=== PATIENT | male | born 1965 | race Caucasian/White ===

== ENCOUNTER 2019-06-28 00:19 | Inpatient (IN) | payer BC ==
[2019-06-28] MEDS ORDERED: Morphine 4 MG/ML VIAL (1 ml) 4 MG/ML VIAL IV ONE ×2 (00:47→03:50)
[2019-06-28] MEDS ORDERED: Metoclopramide IV* 5 MG/ML 2 ML VIAL IV SLOW PU ONE (00:47)
[2019-06-28] MEDS ORDERED: NS 0.9% 1000 ML** 1,000 ML IV ONE (00:47)
--- NOTE | 2019-06-28 01:02 | ED ---
Abdominal Pain/Male - HPI Summary HPI Summary: Patient is a 54 y/o M presenting to [facility] with complaints of intermittent abdominal pain that onset the morning of 06/27/2019. Pain has progressively worsened since onset. He states that he has been diaphoretic and nauseous as well. Last bowel movement was 2100 06/27. He notes Hx of umbilical hernia repair in December of 2009. He additionally notes that he has been hospitalized previously for twisted intestines around 3-4 years ago. On triage, pain is rated 7/10, nothing is noted to aggravate/alleviate Sx. Home medications and allergies are reviewed. - History of Current Complaint Chief Complaint: EDAbdPain Stated Complaint: ABD PAIN PER EMS Time Seen by Provider: 06/28/19 00:40 Hx Obtained From: Patient Onset/Duration: Lasting Hours, Still Present Timing: Intermittent, Lasting Hours Severity Initially: Mild Severity Currently: Severe Pain Intensity: 7 Pain Scale Used: 0-10 Numeric Aggravating Factor(s): Nothing Alleviating Factor(s): Nothing Associated Signs And Symptoms: Positive: Diaphoresis, Nausea. Negative: Constipation - Allergies/Home Medications Allergies/Adverse Reactions: Allergies Allergy/AdvReac Type Severity Reaction Status Date / Time codeine Allergy Unknown Verified 06/28/19 00:26 Reaction Details PMH/Surg Hx/FS Hx/Imm Hx Cardiovascular History: Denies: Hx Congestive Heart Failure, Hx Hypertension History: Reports: Hx Kidney Stones Sensory History: Reports: Hx Contacts or Glasses Opthamlomology History: Reports: Hx Contacts or Glasses Neurological History: Reports: Hx Headaches - Surgical History Surgery Procedure, Year, and Place: Umbillical hernia repair Infectious Disease History: No Infectious Disease History: Denies: History Other Infectious Disease, Traveled Outside the [place] in Last 30 Days - Family History Known Family History: Positive: Other - stroke - Social History Alcohol Use: Occasionally Substance Use Type: Reports: None Smoking Status (MU): Former Smoker Review of Systems Positive: Skin Diaphoresis Gastrointestinal: Other - negative - constipation Positive: Abdominal Pain, Nausea All Other Systems Reviewed And Are Negative: Yes Physical Exam - Summary Physical Exam Summary: VITAL SIGNS: Reviewed. GENERAL: Patient is a well-developed and nourished male who is lying comfortable in the stretcher. Patient is not in any acute respiratory distress. HEAD AND FACE: No signs of trauma. No ecchymosis, hematomas or skull depressions. No sinus tenderness. EYES: PERRLA, EOMI x 2, No injected conjunctiva, no nystagmus. EARS: Hearing grossly intact. Ear canals and tympanic membranes are within normal limits. MOUTH: Oropharynx within normal limits. NECK: Supple, trachea is midline, no adenopathy, no JVD, no carotid bruit, no c- spine tenderness, neck with full ROM CHEST: Symmetric, no tenderness at palpation LUNGS: Clear to auscultation bilaterally. No wheezing or crackles. CVS: Regular rate and rhythm, S1 and S2 present, no murmurs or gallops appreciated. ABDOMEN: Soft. Abdomen is distended and diffusely tender. No rebound no guarding , and no masses palpated. Bowel sounds are normal. EXTREMITIES: FROM in all major joints, no edema, no cyanosis or clubbing. NEURO: Alert and oriented x 3. No acute neurological deficits. Speech is normal and follows commands. SKIN: Dry and warm Triage Information Reviewed: Yes Vital Signs On Initial Exam: Initial Vitals Temp Pulse Resp BP Pulse Ox 98 F 73 16 145/99 98 06/28/19 00:20 06/28/19 00:20 06/28/19 00:20 06/28/19 00:20 06/28/19 00:20 Vital Signs Reviewed: Yes Diagnostics - Vital Signs Vital Signs Temp Pulse Resp BP Pulse Ox 06/28/19 00:20 98 F 73 16 145/99 98 - Laboratory Result Diagrams: 06/28/19 00:59 06/28/19 00:59 Lab Statement: Any lab studies that have been ordered have been reviewed, and results considered in the medical decision making process. - CT CT ABD/PEL CT Interpretation Completed By: Radiologist Summary of CT Findings: CT ABD/PEL IMPRESSION: 1. Partial small bowel obstruction. Dilated loops of small bowel in the left. flank area. No bowel wall thickening or pneumatosis. Short zone of transition. No abnormal study abdominal mass. 2. Nephrolithiasis. At this point in time no hydronephrosis. THIS REPORT WAS REVIEWED BY DR. ANNE. Abdominal Pain Male Course/Dx - Course Course Of Treatment: Patient is a 54 y/o M presenting to [facility] with complaints of intermittent abdominal pain that onset the morning of 06/27/2019. Pain has progressively worsened since onset. He states that he has been diaphoretic and nauseous as well. Last bowel movement was 2100 06/27. He notes Hx of umbilical hernia repair in December of 2009. He additionally notes that he has been hospitalized previously for twisted intestines around 3-4 years ago. On physical exam, patient is noted to have diffuse abdominal tenderness and abdominal distention. Labs showed WBC 15.2, MCH 32, absolute neuts 13.4, absolute lymphs 0.8, potassium 3.4, glucose 127, lipase 10. UA showed trace ketones and ascorbic acid present. During ED course, patient received fluids, morphine 4 mg IV x 2, and reglan [address] ABD/PEL IMPRESSION: 1. Partial small bowel obstruction. Dilated loops of small bowel in the left. flank area. No bowel wall thickening or pneumatosis. Short zone of transition. No abnormal study abdominal mass. 2. Nephrolithiasis. At this point in time no hydronephrosis. 0400 - Patient's case was discussed with Dr. Martinez, Dr. Martinez accepts for admission. - Diagnoses Provider Diagnoses: SBO (small bowel obstruction) - Provider Notifications Discussed Care Of Patient With: Marie Martinez Time Discussed With Above Provider: 04:00 Instructed by Provider To: Other - 0400 - Patient's case was discussed with Dr. Martinez, Dr. Martinez accepts for admission. Discharge ED - Sign-Out/Discharge Documenting (check all that apply): Patient Departure - admit All imaging exams completed and their final reports reviewed: Yes Patient Received Moderate/Deep Sedation with Procedure: No - Discharge Plan Condition: Stable Disposition: ADMITTED TO [facility] - Attestation Statements Document Initiated by Scribe: Yes Documenting Scribe: YOANNA TOLENTINO Provider For Whom Giovani is Documenting (Include Credential): BETHEL ANNE MD Scribe Attestation: YOANNA Napoles, scribed for BETHEL ANNE MD on 06/28/19 at 0541. Status of Scribe Document: Ready
[2019-06-28 01:05] LABS: ABS Lymphocytes 0.8 10^3/ul (1.0-4.8); ABS Monocytes 0.8 10^3/ul (0-0.8); ABS Neutrophils 13.4 10^3/ul (1.5-7.7); Eosinophil % 0.2 %; Hematocrit 47 % (42-52); Hemoglobin 16.2 g/dL (14.0-18.0); Lymphocyte % 5.6 %; Mean Corpuscular HGB Conc 34 g/dL (31-36); Mean Corpuscular Hemoglobin 32 pg (27-31); Mean Corpuscular Volume 92 fL (80-94); Mean Platelet Volume 7.6 fL (7.4-10.4); Platelet Count 209 10^3/uL (150-450); Red Blood Count 5.13 10^6 /uL (4.18-5.48); Red Cell Distribution Width 14 % (10-15); White Blood Count 15.2 10^3/uL (3.5-10.8)
[2019-06-28 01:14] LABS: Activated Partial Thrombo Time 33.7 seconds (26.0-38.0); INR 1.03 (0.82-1.09)
[2019-06-28 01:23] LABS: Albumin 4.7 g/dL (3.2-5.2); Albumin/Globulin Ratio 1.4 (1-3); BUN/Creatinine Ratio 16.5 (8-20); C Reactive Protein 3.55 mg/L (<8.01); Calcium 10.1 mg/dL (8.6-10.3); EGFR African American 104.7 (>60); EGFR Non-African American 86.5 (>60); Globulin 3.3 g/dL (2-4); Magnesium 1.9 mg/dL (1.9-2.7); Potassium 3.4 mmol/L (3.5-5.0); Total Bilirubin 0.6 mg/dL (0.2-1.0)
[2019-06-28] MEDS ORDERED: Iohexol 300* (CONTRAST) 10 ML SDV IV ONE (02:09)
[2019-06-28 03:14] LABS: Urine Appearance Turbid; Urine Bilirubin Negative (Negative); Urine Blood Negative (Negative); Urine Color Yellow; Urine Glucose Negative (Negative); Urine Ketones Trace (Negative); Urine Nitrite Negative (Negative); Urine Protein Negative (Negative); Urine Specific Gravity 1.033 (1.010-1.030); Urine Urobilinogen Negative (Negative)
[2019-06-28] MEDS ORDERED: Acetaminophen TAB* 325 MG PO PRN (04:09)
[2019-06-28] MEDS ORDERED: Ondansetron INJ* 2 MG/ML VIAL IV PRN (04:10)
[2019-06-28] MEDS ORDERED: NS 0.9% 1000 ML** 1,000 ML IV SCH (04:15)
[2019-06-28] MEDS: Heparin VIAL(*) 5000 UNITS/ML VIAL (FIVE THOUSAND) SUBCUT SCH ×3 (06:24→21:23)
--- NOTE | 2019-06-28 07:16 | HP ---
HISTORY AND PHYSICAL: DATE OF ADMISSION: 06/28/19 PRIMARY CARE PROVIDER: Christ Ibarra. RELEASE AND TECHNICAL RECORDS CLERK: Shahrzad Chin, patient's . CODE STATUS: Full. CHIEF COMPLAINT: Abdominal pain. REASON FOR ADMISSION: Partial small bowel obstruction. SOURCE OF INFORMATION: HPI is obtained from the patient who is an excellent historian. HISTORY OF PRESENT ILLNESS: This is a 54-year-old male with past medical history of GERD, hyperlipid emia, but otherwise healthy, who presented with one day of acute onset of left lower quadrant pain. The patient was in his usual state of health until he said he woke up with mild crampy abdominal pain . Over the course of the day, it got worse and he started noticing abdominal distention. It was acco mpanied with nausea and vomiting and he decided to present to the emergency room as he has a history of a small bowel obstruction in 2014 and the symptoms felt very similar. He denies bloody diarrhea, c onstipation. Otherwise, review of systems is negative. EMERGENCY ROOM COURSE: Blood pressure is 145/99, oxygen saturation 98% on room air, respiratory rate 16, pulse 73, temperature 98 degrees. Labs were drawn which show leukocytosis of 15. BMP unremarka ble. UA unremarkable. Lipase 10. LFTs normal. A CAT scan of abdomen showed partial small bowel ob struction with dilated loops of small bowel in the left flank area. No bowel wall thickening. No pn eumatosis. A short zone of transition. Nephrolithiasis was seen with no hydronephrosis. An NG tube was placed in the emergency room with immediate 700 cc of green gastric contents was emptied with im mediate symptom relief. Hospitalist team was asked to evaluate the patient for further diagnostics a nd treatment. PAST MEDICAL HISTORY: Hyperlipidemia, GERD. PAST SURGICAL HISTORY: Umbilical hernia repair. MEDICATIONS: 1. Simvastatin 20 mg p.o. daily 2. Omeprazole 20 mg p.o. daily. 3. Aspirin 81 mg p.o. daily. ALLERGIES: CODEINE. FAMILY HISTORY: The patient reports both parents are living and healthy with no chronic diseases. SOCIAL HISTORY: The patient lives with his . 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 Tobacco, lifetime nonuser. Alcohol, scant, social drinker with 1 to 2 dri nks per week. Illicits none. REVIEW OF SYSTEMS: Constitutional: Negative for fevers, chills, malaise. HEENT: Negative for visio n changes, sore throat. Cardiovascular: Negative for chest pain, palpitations, orthopnea. Respirat ory: Negative for shortness of breath, cough, pleuritic chest pain. GI: Positive for nausea, vomit ing, and abdominal pain. Negative for diarrhea, constipation. : Negative for dysuria, hematuria. Musculoskeletal: Negative for myalgias, arthralgias, or weakness. Skin: Negative for rashes or le sions. Neurologic: Negative for focal weakness or numbness. Psychiatric: Negative for depression a nd anxiety. Endocrine: Negative for polyuria, polydipsia. Heme: Negative for easy bruising, bleed ing, or lymphadenopathy. Allergies: Negative for frequent infections. PHYSICAL EXAMINATION GENERAL APPEARANCE: A very pleasant man in no acute distress with NG tube in place. VITAL SIGNS: At the time of physical exam, 139/88 blood pressure, oxygen 95% on room air, pulse 74 s inus, afebrile. HEENT: Pupils are equal and reactive. Extraocular muscles are intact. Sclerae anicteric. NG tube is placed in naris, to low intermittent wall suction. Oropharynx is with moist mucous membranes. NECK: Supple with no supraclavicular or cervical lymphadenopathy. RESPIRATORY: Lungs are clear to auscultation bilaterally. CARDIAC: Regular rate and rhythm with no murmurs, rubs, or gallops. ABDOMEN: Belly is distended but soft, mildly tender to palpation in the left lower quadrant. No kim ound or guarding. No organomegaly. Hyperactive bowel sounds heard in all 4 quadrants. EXTREMITIES: Well perfused and warm. 2+ pulses without edema. NEUROLOGIC: Cranial nerves II through XII are intact. No focal neurologic deficits. A and O x3. P leasant and cooperative with exam. SKIN: Without rashes are lesions. DIAGNOSTIC STUDIES/LAB DATA: CBC: White blood cell count of 15.2, hemoglobin 16, hematocrit 47, pl atelets 209, INR 1.03. Chemistry: Sodium of 136, potassium 3.4, carbon dioxide 26, BUN 1.5, creatin ine 0.91, glucose 127. UA with trace ketones. Otherwise, unremarkable. Imaging: Abdomen and pelvis CT shows dilated small bowel loops in the left flank area with short tra nsition point with no associated bowel wall edema or pneumatosis consistent with partial small bowel obstruction. Imaging and labs reviewed by myself. ASSESSMENT AND PLAN: This is a 54-year-old man with a past medical history of gastroesophageal reflu x disease and hyperlipidemia who presents with one day of abdominal pain and found to have left lower quadrant partial small bowel obstruction and is status post NG tube placement. 1. Partial small obstruction. The patient will continue on low intermittent wall suction with NG tu be. He is at risk for small bowel obstruction secondary to his prior umbilical hernia and prior smal l bowel obstruction in 2014. Surgery was consulted in the morning. Pain control with morphine, comp lete bowel rest and IV fluids at 125 mL per hour will be continued. Symptomatic treatment of nausea with Zofran. We will continue home PPI. 2. Hyperlipidemia. We will continue home statin. 3. Gastroesophageal reflux disease. Home proton pump inhibitor will be continued. 4. DVT prophylaxis: Subcu heparin. 5. Disposition: Stable for admission to [address] [place] [address] under medical service with Surgery consulting. 6. Code status is full. 7. FEN. N.p.o. except for ice chips. Advance diet as tolerated. TIME SPENT: Forty minutes was spe nt in the planning of this admission with over half of that spent directly at the bedside with the samra lewis providing direct patient care. Plan of care was discussed with the patient's who had no f urther questions. [id number]/[facility] #: [id number]
[2019-06-28] MEDS: Morphine 10 MG/ML VIAL (1 ml) IV PRN ×3 (08:08→20:18)
[2019-06-28] MEDS: Pantoprazole IV* 40 MG IV SCH (08:43)
[2019-06-28] MEDS ORDERED: Atorvastatin* 10 MG TAB PO SCH (09:00)
[2019-06-28] MEDS ORDERED: Pantoprazole TAB * 40 MG TAB PO SCH (09:00)
[2019-06-28] MEDS ORDERED: Aspirin EC TAB* 81 MG TAB.EC PO SCH (09:00)
--- NOTE | 2019-06-28 10:50 | PN ---
Subjective Date of Service: 06/28/19 Interval History: Mr. Chin is feeling better this morning. His pain has improved from a 10 to 3/10. Describes the pain as band-like around his mid abdomen. Denies N/V. No CP or SOB. Nursing requesting chloraseptic throat spray. Family History: Unchanged from Admission Social History: Unchanged from Admission Past Medical History: Unchanged from Admission Objective Active Medications: Acetaminophen (Tylenol Tab*) 650 mg PO Q6H PRN MILD PAIN or TEMP > 100.4 Aspirin (Aspirin Ec Tab*) 81 mg PO DAILY [facility] Atorvastatin Calcium (Lipitor*) 10 mg PO DAILY [facility] Heparin Sodium (Porcine) (Heparin Vial(*)) 5,000 units SUBCUT Q8HR [facility] Sodium Chloride (Ns 0.9% 1000 Ml) 1,000 mls @ 125 mls/hr IV Q8H [facility] Morphine Sulfate (Morphine 10 Mg/Ml Vial (1 Ml)) 5 mg IV Q6H PRN PAIN - SEVERE Ondansetron HCl (Zofran Inj*) 4 mg IV Q6H PRN NAUSEA Pantoprazole Sodium (Protonix Iv*) 40 mg IV DAILY [facility] Phenol/Menthol (Chloroseptic Throat [place]*) 1 spray MT TID PRN SORE THROAT Vital Signs - 8 hr 06/28/19 06/28/19 06/28/19 02:52 03:00 03:22 Temperature Pulse Rate 94 83 84 Respiratory Rate Blood Pressure 124/75 118/72 (mmHg) O2 Sat by Pulse 92 91 92 Oximetry 06/28/19 06/28/19 06/28/19 03:52 04:00 04:03 Temperature Pulse Rate 82 104 Respiratory 16 Rate Blood Pressure 124/72 (mmHg) O2 Sat by Pulse 94 96 Oximetry 06/28/19 06/28/19 06/28/19 04:22 04:48 04:52 Temperature Pulse Rate 83 80 82 Respiratory Rate Blood Pressure 123/74 128/77 129/80 (mmHg) O2 Sat by Pulse 93 93 93 Oximetry 06/28/19 06/28/19 06/28/19 05:00 05:22 05:52 Temperature Pulse Rate 75 77 70 Respiratory Rate Blood Pressure 131/79 133/83 (mmHg) O2 Sat by Pulse 93 93 94 Oximetry 08/27/19 08/27/19 08/27/19 06:06 06:16 08:08 Temperature 98 F 97.8 F Pulse Rate 71 84 Respiratory 16 18 18 Rate Blood Pressure 129/80 117/76 (mmHg) O2 Sat by Pulse 94 97 Oximetry Oxygen Devices in Use Now: None Appearance: Middle-aged male sitting in bed in NAD Eyes: No Scleral Icterus Ears/Nose/Mouth/Throat: Mucous Membranes Moist Neck: NL Appearance and Movements; NL JVP, Trachea Midline Respiratory: Symmetrical Chest Expansion and Respiratory Effort, Clear to Auscultation Cardiovascular: NL Sounds; No Murmurs; No JVD, RRR Abdominal: - - Soft, tender throughout, worst in LUQ and LLQ Extremities: No Edema Neurological: Alert and Oriented x 3 Lines/Tubes/Other Access: Clean, Dry and Intact Other Access - NG tube Result Diagrams: 06/28/19 00:59 06/28/19 00:59 Assess/Plan/Problems-Billing Assessment: Mr. Chin is a 54 yo M with PMH of HLD, GERD, and SBO in 2014; who presented to the ED with abdominal pain and N/V and was found to have a partial SBO. - Patient Problems (1) SBO (small bowel obstruction) Code(s): K56.69 - OTHER INTESTINAL OBSTRUCTION * DO NOT USE * Comment: - One day od abdominal pain and N/V prior to admission - CT showing partial SBO - Appreciate Surgery consult; plan for repeat xray in the AM - NPO - NG to suction (2) Hyperlipidemia Code(s): E78.5 - HYPERLIPIDEMIA, UNSPECIFIED Comment: - Hold statin while NPO (3) GERD (gastroesophageal reflux disease) Code(s): K21.9 - GASTRO-ESOPHAGEAL REFLUX DISEASE WITHOUT ESOPHAGITIS Comment : - Continue pantoprazole (4) DVT prophylaxis Code(s): Z29.9 - ENCOUNTER FOR PROPHYLACTIC MEASURES, UNSPECIFIED Comment: - Heparin SQ (5) Full code status Code(s): Z78.9 - OTHER SPECIFIED HEALTH STATUS Comment: Status and Disposition: Inpatient. Anticipate d/c home when medically stable. Attending: Estiven Chávez
--- NOTE | 2019-06-28 12:54 | CONS ---
CC: Dr. Noel; Dr. Baptiste * SURGICAL CONSULTATION NOTE: DATE OF CONSULT: 06/28/19 LOCATION: This patient was seen on 06/28/19 in room 420 at [facility]. ATTENDING PHYSICIAN: Dr. Maldonado Noel. CHIEF COMPLAINT: Worsening abdominal pain. REASON FOR ADMISSION: Partial small bowel obstruction. HISTORY OF PRESENT ILLNESS: The patient is a 54-year-old male with a past medical history of GERD, hyperlipidemia, and partial small bowel obstruction in 2014. He presented to the emergency department on 06/27/19 with 1 day of acute onset of left lower quadrant pain. He was in his usual state of health until he woke up with mild crampy abdominal pain; over the course of the day, it got worse and he started noticing abdominal distention accompanied with nausea and vomiting. He decided to present to the emergency room because of his history of small bowel obstruction in 2014 and the symptoms were very similar. He denies any constipation, bloody stools, or dysuria. In the emergency room, his white blood count was elevated at 15.2, LFTs and basic metabolic profile were within normal limits. A CAT scan of the abdomen showed partial small bowel obstruction with dilated loops of small bowel in the left flank area, no bowel wall thickening or pneumatosis. There was a short zone of transition. A nasogastric tube was placed in the emergency room with immediate 700 mL of green gastric contents with immediate symptom relief. This morning, he reports that his pain has decreased from 9 down to 3; he is not passing any flatus or stools, and overnight, he had an additional 600 mL of nasogastric drainage. PAST MEDICAL HISTORY: Hyperlipidemia, GERD, and partial small bowel obstruction. He is followed for primary care by Dr. Baptiste at [place]. PAST SURGICAL HISTORY: Umbilical hernia repair at [place] in 2009 and he is not sure if they used mesh. MEDICATIONS AT HOME: 1. Simvastatin 20 mg p.o. daily. 2. Omeprazole 20 mg p.o. daily. 3. Aspirin 81 mg p.o. daily. ALLERGIES: CODEINE caused unspecified reaction. FAMILY HISTORY: The patient reports that both parents are alive and well. 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 He denies the use of tobacco. He rarely drinks alcohol and denies the use of other substances. REVIEW OF SYSTEMS: Constitutional: No fevers, chills, or excessive fatigue. Cardiovascular: No chest pain or palpitations. Respiratory: No shortness of breath or chronic cough. Gastrointestinal: As described in history of present illness. Negative for diarrhea or constipation. Genitourinary: No dysuria or hematuria. Musculoskeletal: No myalgias or arthralgias or weakness. Neurologic: No focal weakness or numbness. Endocrine: No diabetes or thyroid disease. Hematologic: No easy bruising or bleeding. General: No previous anesthesia complications. No history of deep vein thrombosis or pulmonary embolism. PHYSICAL EXAM: General Survey: The patient is a 54-year-old male, well developed, well nourished, in no acute distress. Blood pressure 117/76, pulse 84 and regular, respiratory rate 18, temperature 97.8 tympanic, O2 saturation on room air 97%. Height 5 feet 5 inches, weight 193 pounds, body max index 32. Skin: Warm, dry, intact. HEENT: Benign. Neck: Supple. No cervical lymphadenopathy. Lungs: Breath sounds bilaterally clear and equal. Heart: Regular rate and rhythm. No murmurs or rubs. Abdomen: Hypoactive bowel sounds ; soft and distended; tender to palpation in the lower quadrants, left greater than right. No guarding or rebound tenderness. Well-healed umbilical surgical scar. No obvious organomegaly or ventral hernia, but exam is limited by the patient's discomfort. Genitalia and rectal exams deferred. Extremities are warm without edema or skin ulceration. Neurologic: Alert and oriented x3, pleasant and conversant. Skin without rashes or lesions. ASSESSMENT AND PLAN: The patient is a 54-year-old man with recurrent partial small bowel obstruction with medical history of gastroesophageal reflux disease and hyperlipidemia who presents with 1 day of abdominal pain and was found to have a left lower quadrant partial small bowel obstruction. The patient will continue on low intermittent wall suction with nasogastric tube; he will be n.p.o. except for a few ice chips; he will receive IV fluids, pain management. We will continue to follow the patient and I have ordered abdominal x-ray and labs for tomorrow morning. The plan of care was discussed with the patient and his and they had no further questions. Dr. Noel will be updated. TIME SPENT: Sixty minutes with greater than 50% in history taking and physical examination and coordination of care. CARLOS MANUEL OMER NP [id number]/[facility] #: [id number] ROSANA
[2019-06-28] MEDS: Phenol 1.4% Spray* 177 ML BTL MT PRN (20:18)
[2019-06-29] MEDS: Morphine 10 MG/ML VIAL (1 ml) IV PRN ×2 (02:10→09:14)
[2019-06-29] MEDS: Phenol 1.4% Spray* 177 ML BTL MT PRN (02:10)
[2019-06-29] MEDS: Heparin VIAL(*) 5000 UNITS/ML VIAL (FIVE THOUSAND) SUBCUT SCH ×3 (05:29→22:04)
[2019-06-29 05:52] LABS: ABS Lymphocytes 1.3 10^3/ul (1.0-4.8); ABS Monocytes 0.8 10^3/ul (0-0.8); ABS Neutrophils 8.8 10^3/ul (1.5-7.7); Eosinophil % 0.3 %; Hematocrit 44 % (42-52); Hemoglobin 14.7 g/dL (14.0-18.0); Lymphocyte % 11.9 %; Mean Corpuscular HGB Conc 34 g/dL (31-36); Mean Corpuscular Hemoglobin 32 pg (27-31); Mean Corpuscular Volume 94 fL (80-94); Mean Platelet Volume 8.1 fL (7.4-10.4); Platelet Count 195 10^3/uL (150-450); Red Blood Count 4.64 10^6 /uL (4.18-5.48); Red Cell Distribution Width 14 % (10-15)
[2019-06-29 06:12] LABS: BUN/Creatinine Ratio 15.8 (8-20); Calcium 8.4 mg/dL (8.6-10.3); EGFR African American 92.8 (>60); EGFR Non-African American 76.7 (>60); Potassium 3.6 mmol/L (3.5-5.0)
[2019-06-29] MEDS: Pantoprazole IV* 40 MG IV SCH (08:32)
[2019-06-29] MEDS ORDERED: Lactated Ringers 1000 ML Bag* 1,000 ML IV SCH (11:00)
--- NOTE | 2019-06-29 11:16 | PN ---
Subjective Date of Service: 06/29/19 Interval History: Mr. Chin is feeling better today. No further abdominal pain. Denies nausea. Has passed gas this morning and feels as though he needs to have a BM. Would like to have the NG tube removed. Denies CP, SOB. No concerns from nursing. Family History: Unchanged from Admission Social History: Unchanged from Admission Past Medical History: Unchanged from Admission Objective Active Medications: Acetaminophen (Tylenol Tab*) 650 mg PO Q6H PRN MILD PAIN or TEMP > 100.4 Heparin Sodium (Porcine) (Heparin Vial(*)) 5,000 units SUBCUT Q8HR [facility] Lactated Ringer's (Lactated Ringers 1000 Ml Bag*) 1,000 mls @ 100 mls/hr IV PER RATE [facility] Morphine Sulfate (Morphine 10 Mg/Ml Vial (1 Ml)) 5 mg IV Q6H PRN PAIN - SEVERE Ondansetron HCl (Zofran Inj*) 4 mg IV Q6H PRN NAUSEA Pantoprazole Sodium (Protonix Iv*) 40 mg IV DAILY [facility] Phenol/Menthol (Chloroseptic Throat [place]*) 1 spray MT TID PRN SORE THROAT Vital Signs - 8 hr 06/29/19 06/29/19 06/29/19 07:15 08:00 09:14 Temperature 97.4 F Pulse Rate 77 Respiratory 16 18 18 Rate Blood Pressure 122/69 (mmHg) O2 Sat by Pulse 94 Oximetry Oxygen Devices in Use Now: None Appearance: Middle-aged male sitting in bed in NAD Eyes: No Scleral Icterus Ears/Nose/Mouth/Throat: Mucous Membranes Moist Neck: NL Appearance and Movements; NL JVP, Trachea Midline Respiratory: Symmetrical Chest Expansion and Respiratory Effort, Clear to Auscultation Cardiovascular: NL Sounds; No Murmurs; No JVD, RRR Abdominal: - - SNT, hypoactive BS Neurological: Alert and Oriented x 3 Lines/Tubes/Other Access: Clean, Dry and Intact Peripheral IV Nutrition: Taking PO's Result Diagrams: 06/29/19 05:18 06/29/19 05:18 Assess/Plan/Problems-Billing Assessment: Mr. Chin is a 54 yo M with PMH of HLD, GERD, and SBO in 2014; who presented to the ED with abdominal pain and N/V and was found to have a partial SBO. - Patient Problems (1) SBO (small bowel obstruction) Code(s): K56.69 - OTHER INTESTINAL OBSTRUCTION * DO NOT USE * Comment: - One day od abdominal pain and N/V prior to admission - CT showing partial SBO - Repeat abdomen xray this morning, report pending - Appreciate Surgery consult - NPO and NG to suction; can likely remove NG and advance to clears if xray shows improvement (2) Hyperlipidemia Code(s): E78.5 - HYPERLIPIDEMIA, UNSPECIFIED Comment: - Hold statin while NPO (3) GERD (gastroesophageal reflux disease) Code(s): K21.9 - GASTRO-ESOPHAGEAL REFLUX DISEASE WITHOUT ESOPHAGITIS Comment : - Continue pantoprazole (4) DVT prophylaxis Code(s): Z29.9 - ENCOUNTER FOR PROPHYLACTIC MEASURES, UNSPECIFIED Comment: - Heparin SQ (5) Full code status Code(s): Z78.9 - OTHER SPECIFIED HEALTH STATUS Comment: Status and Disposition: Inpatient. Anticipate d/c home when medically stable. Attending: Estiven Chávez
--- NOTE | 2019-06-29 13:36 | PN ---
Progress Note - Progress Note Date of Service: 06/29/19 SOAP: Subjective:passing flatus,no abdominal pain,hungry [] Objective: Vital Signs Temp 97.6 F 06/29/19 11:15 Pulse 72 06/29/19 11:15 Resp 18 06/29/19 11:27 BP 126/70 06/29/19 11:15 Pulse Ox 96 06/29/19 11:15 Intake & Output 06/28/19 06/29/19 06/29/19 18:59 06:59 18:59 Intake Total 1000 0 0 Output Total 400 Balance 600 0 0 Intake: IV Fluids 1000 NS (0.9%) 1000 Oral 0 0 Output: NG Tube Drainage Amount 400 Other: Estimated Void Medium # Bowel Movements 0 # Voids 1 0 abd:+bs,softer,nontender throughout,no masses,no ventral hernia AXR today:no dilated loops of small bowel,stool in colon [] Assessment:SBO resolved;he stated today that he has hx of diverticulosis [] Plan:remove NG tube start clear liquids and advance diet as tolerated no surgery indicated at this time discussed importance of dietary fiber followup with PCP as needed return to ED with recurrent symptoms surgery will sign off,thank you for this consult []
[2019-06-30] MEDS: Heparin VIAL(*) 5000 UNITS/ML VIAL (FIVE THOUSAND) SUBCUT SCH ×2 (06:04→16:41)
[2019-06-30] MEDS: Pantoprazole IV* 40 MG IV SCH (09:03)
[2019-06-30] MEDS ORDERED: Polyethylene Glycol 3350* 17 GM PACKET PO PRN (09:09)
[2019-06-30 11:55] VITALS: BP 123/76
--- NOTE | 2019-06-30 23:16 | DS ---
CC: Dr. Baptiste; Stacy Mendoza NP * DISCHARGE SUMMARY: DATE OF ADMISSION: 06/28/19 DATE OF DISCHARGE: 06/30/19 ATTENDING PHYSICIAN WHILE IN THE HOSPITAL: Dr. Estiven Chávez.* (DICTATED BY NADIA CAAL) PRIMARY CARE PROVIDER: Dr. Baptiste. CONSULTING: General surgery provider, Stacy Mendoza NP. PRIMARY DIAGNOSIS: Partial small bowel obstruction, resolved. SECONDARY DIAGNOSES: 1. Hyperlipidemia. 2. Gastroesophageal reflux disease. STUDIES WHILE IN THE HOSPITAL: CT abdomen and pelvis: Partial small bowel obstruction. Dilated bowel loops of small bowel in the left flank area. No bowel wall thickening or pneumatosis. Short zone of transition. Abdomen x-ray on 06/29/19, no abnormal dilated loops of the small bowel was noted. Stool was present throughout the colon. Nasogastric tube was in place. HISTORY OF PRESENT ILLNESS/HOSPITAL COURSE: Bret Chin is a 54-year-old white male with past medical history significant for hyperlipidemia and GERD, who presented to the emergency department on 06/28/19 due to worsening abdominal pain. Please see the admitting history and physical written by Dr. Marie Martinez for further information. The patient was found to have a small bowel obstruction. Nasogastric tube was placed for decompression, ultimately his bowel obstruction resolved on radiologic findings and nasogastric tube was removed. His diet was advanced from liquids to a regular diet, and he tolerated all of these diets well. On the day of discharge, the patient had multiple small bowel movements and was passing gas and his abdominal pain was resolved. He had no nausea or vomiting, without any difficulty feeding. PHYSICAL EXAMINATION: General: Middle-aged white male, sitting in hospital chair, appearing comfortable, in no acute distress. Eyes: PERRL. Sclerae anicteric. ENT: Mucous membranes are moist. Cardiac: Regular rate and rhythm without murmurs, rubs or gallops. Lungs: Clear to auscultation throughout. Abdomen is soft, nontender, and nondistended. Normoactive bowel sounds x4 quadrants. Extremities: No clubbing, cyanosis or edema. Neuro: Alert and oriented x3. Gait is normal. Cranial nerves II through XII are grossly intact. DISCHARGE PLAN: Diet: The patient may have a regular unrestricted diet though encouraged to avoid raw vegetables such as kale. Activity: The patient may return to normal activity as tolerated. The patient was provided with work excuse excusing him from work through tomorrow and he may return to work on his normal scheduled day the day following Labor Day on 07/05/19. The patient is advised to return to the emergency department if he has a severe abdominal pain, nausea or vomiting to the point of not being able to keep fluids down. The patient is advised to follow up with primary care provider in a week regarding this hospitalization. There is no need for followup with Surgery at this time. DISCHARGE MEDICATIONS: No new medications. Continued home medications: 1. Simvastatin 20 mg p.o. daily. 2. Omeprazole 20 mg p.o. daily. 3. Aspirin 81 mg p.o. daily. CONDITION ON DISCHARGE: Stable. DISPOSITION: Home. TIME SPENT: Approximately 40 minutes was spent on this discharge, approximately half this time was spent bedside evaluating the patient and discussing plan of discharge. NADIA CAAL [id number]/CPS #: [id number] MTDD
== END 2019-06-30 17:20 | disposition home or self-care (01) | DRG 247 ==
LOC: ED 00:19 → MED 04:08
PROVIDERS: ADMIT Internal Medicine; ATTEND Internal Medicine
PROC: 0D9670Z Drainage of Stomach with Drainage Device, Via Natural or Artificial Opening (ICD-10-PCS; principal; 2019-06-28)
DX: K56.600 Partial intestinal obstruction, unspecified as to cause (principal); E78.5 Hyperlipidemia, unspecified; N20.0 Calculus of kidney; K21.9 Gastro-esophageal reflux disease without esophagitis; Z88.6 Allergy status to analgesic agent; Z82.3 Family history of stroke; Z87.891 Personal history of nicotine dependence; Z72.89 Other problems related to lifestyle; Z79.82 Long term (current) use of aspirin
CPT/HCPCS: 36415; 74019; 74177; 80048; 80053; 81003; 82150; 83690; 83735; 85025; 85610; 85730; 86140; 99283; A9270-GY; J1644; J2270; J2765; Q9967